=== PATIENT | male | born 1975 | race Two or more races ===

== ENCOUNTER 2023-05-18 20:35 | Emergency (ER) | payer OTHER ==
[~2023-05-18] VITALS: Ht 182.9 cm; Wt 97.1 kg
[2023-05-19] MEDS ORDERED: TETANUS-DIPTH-ACEL PERTUSSIS 0.5ML SYR Tdap IM ONE (00:30)
[2023-05-19 01:14] VITALS: BP 128/78; PULSE 71; RESP 16; TEMP 97.9; O2SAT 97
== END 2023-05-19 01:18 | disposition home or self-care (01) ==
LOC: ER 20:38
DX: S60.512A Abrasion of left hand, initial encounter (principal); W26.8XXA Contact with other sharp object(s), not elsewhere classified, initial encounter; Y93.89 Activity, other specified; Y92.89 Other specified places as the place of occurrence of the external cause; Y99.8 Other external cause status
CPT/HCPCS: 90471; 90715